=== PATIENT | female | born 1955 | race Caucasian/White ===

== ENCOUNTER 2022-11-27 07:00 | Outpatient (RCR) | payer MEDICARE, SELFPAY | END 2022-11-27 09:52 | disposition home or self-care (01) | LOC: ANHHIPT 07:00 | PROVIDERS: PCP Physician Assistant Medical; Visit Provider Physician Assistant Medical | DX: R42 Dizziness and giddiness (principal) | CPT/HCPCS: 99199 ==

== ENCOUNTER 2023-10-18 07:19 | Outpatient (CLI) | payer MEDICARE, SELFPAY ==
--- NOTE | ~2023-10-18 | US_ITS ---
EXAMINATION: US soft tissue abdomen DATE: 10/18/2023 08:43 INDICATION: Localized swelling, mass and lump, trunk. TECHNIQUE: Multiple grayscale and Doppler ultrasound images of the abdomen were obtained. COMPARISON: None FINDINGS: In the patient's area of concern to the left of the umbilicus, there is normal subcutaneous fat. IMPRESSION: 1. No abnormal mass in the patient's area of concern to the left of the umbilicus. Reviewed, dictated and finalized at location A. IMPRESSION: 1. No abnormal mass in the patient's area of concern to the left of the umbilic us.
== END 2023-10-18 07:20 | disposition home or self-care (01) ==
PROVIDERS: PCP Physician Assistant Medical; Visit Provider Nurse Practitioner Family
DX: R22.2 Localized swelling, mass and lump, trunk (principal)
CPT/HCPCS: 76705

== ENCOUNTER 2023-11-12 03:08 | Day surgery (SDC) | payer MEDICARE, SELFPAY ==
[2023-11-02 13:06] VITALS: BMI 46.6
--- NOTE | 2023-11-02 13:33 | PC.NURSE ---
Spoke with PATIENT regarding medication ELIQUIS. Pt. verbalizes understanding that the last dose of ELIQUIS is to be taken on 11/09/2023 and the Endoscopist will instruct them when to restart after the procedure.
[2023-11-12 09:37] VITALS: BP 156/110; PULSE 86; RESP 20; TEMP 36.1; O2SAT 97
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
[2023-11-12] MEDS: LACTATED RINGERS 1,000 ML 150 ML IV CONT (09:49)
--- NOTE | 2023-11-12 10:01 | SUR.OPER ---
EGD start 955 end 958, Colonoscopy start 100
[2023-11-12 10:15] VITALS: BP 101/66; PULSE 74; RESP 22; O2SAT 99
[2023-11-12 10:25] VITALS: BP 114/70; PULSE 83; RESP 22; O2SAT 99
[2023-11-12 10:35] VITALS: BP 119/69; PULSE 78; RESP 19; O2SAT 98
== END 2023-11-12 11:00 | disposition home or self-care (01) ==
PROVIDERS: PCP Physician Assistant Medical; Referring Provider Nurse Practitioner Family; Visit Provider Internal Medicine Gastroenterology
PROC: 0DJ08ZZ Inspection of Upper Intestinal Tract, Via Natural or Artificial Opening Endoscopic (ICD-10-PCS; CPT 43235; principal; 2023-11-12 13:30)
DX: Z12.11 Encounter for screening for malignant neoplasm of colon (principal); K64.8 Other hemorrhoids; K57.30 Diverticulosis of large intestine without perforation or abscess without bleeding; K29.80 Duodenitis without bleeding; K29.50 Unspecified chronic gastritis without bleeding; F41.9 Anxiety disorder, unspecified; K21.9 Gastro-esophageal reflux disease without esophagitis; I10 Essential (primary) hypertension; E55.9 Vitamin D deficiency, unspecified; I48.91 Unspecified atrial fibrillation; E66.9 Obesity, unspecified; Z68.42 Body mass index [BMI] 45.0-49.9, adult; Z79.01 Long term (current) use of anticoagulants; Z90.49 Acquired absence of other specified parts of digestive tract; Z80.1 Family history of malignant neoplasm of trachea, bronchus and lung; Z82.49 Family history of ischemic heart disease and other diseases of the circulatory system
CPT/HCPCS: 43239; G0105; 88305; J2704; J7120